=== PATIENT | male | born 1955 | race Caucasian/White ===

== ENCOUNTER 2021-06-12 06:30 | Observation (INO) ==
[~2021-06-12 06:30] MED LIST: Buffered Lidocaine 1% SYRIN 1 ml INTRADERM ONE; Famotidine IV 10 MG/ML 2 ml VIAL (20 mg) IV ONE; Lactated Ringers 1000 ml BAG 1,000 ML IV SCH
[2021-06-12] MEDS ORDERED: Lidocaine 2% PF 5 ML VIAL ONE ×2 (06:55→08:10)
[2021-06-12] MEDS ORDERED: Midazolam 5 mg/5 ml VIAL 1 mg/ml 5 ml VIAL (5 mg) ONE (06:55)
[2021-06-12] MEDS ORDERED: fentaNYL 100 mcg/2 ml 50 MCG/ML VIAL ONE (06:55)
[2021-06-12] MEDS ORDERED: ROPIVACAINE 5 MG/ML 30 ML BTL (0.5%) ONE (06:56)
[2021-06-12] MEDS ORDERED: Famotidine IV 10 MG/ML 2 ml VIAL (20 mg) ONE (06:58)
[2021-06-12] MEDS ORDERED: ceFAZolin 2 GM in NS PREMIX 2 GM/100 ML BAG IVPB ONE (06:58)
[2021-06-12] MEDS ORDERED: Propofol 0 MG/0 ML BTL ONE (08:10)
[2021-06-12] MEDS ORDERED: Ropivacaine 5 MG/ML 20 ML VIAL 0.5% (100 MG) ONE (08:10)
[2021-06-12] MEDS ORDERED: Phenylephrine IV 10 MG/ML 1 ml VIAL ONE (08:11)
[2021-06-12] MEDS ORDERED: Midazolam 2 mg/2 ml VIAL 1 mg/ml 2 ml VIAL (2 mg) ONE (08:16)
[2021-06-12] MEDS ORDERED: Rocuronium 50 mg VIAL 10 mg/ml 5 ml VIAL (50 mg) ONE (08:21)
[2021-06-12] MEDS ORDERED: fentaNYL 250 mcg/5 ml 50 MCG/ML 5 ml VIAL (250 MCG) ONE (08:21)
[2021-06-12] MEDS ORDERED: Propofol 10 MG/ML 20 ML BTL ONE ×2 (08:21→09:27)
[2021-06-12] MEDS ORDERED: HYDROmorphone 0.5 MG/0.5 ML SYRINGE ONE (09:20)
[2021-06-12] MEDS ORDERED: Lactulose 30 ml UDC PO PRN (09:41)
[2021-06-12] MEDS ORDERED: Ondansetron ODT 4 mg TAB 4 MG TAB PO PRN (09:41)
[2021-06-12] MEDS ORDERED: diPHENhydraMINE 25 mg TAB PO PRN (09:41)
[2021-06-12] MEDS ORDERED: Ondansetron 4 mg VIAL 2 MG/ML 2 ml VIAL IV PRN ×2 (09:41→10:25)
[2021-06-12] MEDS ORDERED: Magnesium Hydroxide LIQ 30 ML UDC PO PRN (09:41)
[2021-06-12] MEDS ORDERED: diPHENhydraMINE IV 50 MG/ML 1 ml VIAL (BENADRYL) IV PRN (09:41)
[2021-06-12] MEDS ORDERED: Lactated Ringers 1000 ml BAG 1,000 ML IV SCH (10:00)
[2021-06-12] MEDS ORDERED: fentaNYL 100 mcg/2 ml 50 MCG/ML VIAL IV PRN (10:25)
[2021-06-12] MEDS ORDERED: HYDROmorphone 1 MG/1 ML SYRINGE IV PRN (10:25)
[2021-06-12] MEDS ORDERED: Naloxone 0.4 mg VIAL 0.4 mg/ml 1 ml VIAL IV PRN (10:25)
[2021-06-12] MEDS ORDERED: Ondansetron 4 mg VIAL 2 MG/ML 2 ml VIAL ONE (10:49)
[2021-06-12] MEDS ORDERED: Dexamethasone IV 4 MG/ML VIAL 1 ml VIAL ONE (10:49)
[2021-06-12] MEDS ORDERED: ceFAZolin 1 GM ADVAN 1 GM in NS 0.9% 50 ML 50 ML IVPB SCH (17:00)
[2021-06-12 18:03] VITALS: BP 150/66
[2021-06-12] MEDS ORDERED: Magnesium Hydroxide LIQ 30 ML UDC PO SCH (21:00)
[2021-06-13] MEDS ORDERED: Vitamin THERAPEUTIC TAB PO SCH (09:00)
== END 2021-06-12 18:25 | disposition home or self-care (01) ==
LOC: OR 06:30 → SSU 06:30
PROVIDERS: ADMIT Orthopaedic Surgery Adult Reconstructive Orthopaedic Surgery; ATTEND Orthopaedic Surgery Adult Reconstructive Orthopaedic Surgery

== ENCOUNTER 2021-09-29 06:01 | Observation (INO) ==
[~2021-09-29 06:01] MED LIST changes: -Famotidine IV 10 MG/ML 2 ml VIAL (20 mg) IV ONE
[2021-09-29] MEDS ORDERED: ceFAZolin 2 GM in NS PREMIX 2 GM/100 ML BAG IVPB ONE (06:17)
[2021-09-29] MEDS ORDERED: Ondansetron 4 mg VIAL 2 MG/ML 2 ml VIAL ONE (06:40)
[2021-09-29] MEDS ORDERED: Propofol 10 MG/ML 20 ML BTL ONE (06:40)
[2021-09-29] MEDS ORDERED: Propofol 0 MG/0 ML BTL ONE (06:40)
[2021-09-29] MEDS ORDERED: Lidocaine 2% PF 5 ML VIAL ONE (06:40)
[2021-09-29] MEDS ORDERED: Dexamethasone IV 4 MG/ML VIAL 1 ml VIAL ONE (06:40)
[2021-09-29] MEDS ORDERED: fentaNYL 250 mcg/5 ml 50 MCG/ML 5 ml VIAL (250 MCG) ONE (06:41)
[2021-09-29] MEDS ORDERED: Phenylephrine IV 10 MG/ML 1 ml VIAL ONE (06:41)
[2021-09-29] MEDS ORDERED: Midazolam 2 mg/2 ml VIAL 1 mg/ml 2 ml VIAL (2 mg) ONE (06:41)
[2021-09-29] MEDS ORDERED: Propofol 10 mg/ml 100 ML BTL 0 ML ONE (06:45)
[2021-09-29] MEDS ORDERED: ROPIVACAINE 5 MG/ML 30 ML BTL (0.5%) ONE (07:14)
[2021-09-29] MEDS ORDERED: Naloxone 0.4 mg VIAL 0.4 mg/ml 1 ml VIAL IV PRN (07:30)
[2021-09-29] MEDS ORDERED: Prochlorperazine 5 mg/ml 2 ml VIAL (10 mg) IV PRN (07:30)
[2021-09-29] MEDS ORDERED: Bupivacaine 0.25% SDV 30 ML ONE (07:58)
[2021-09-29] MEDS ORDERED: HYDROmorphone 0.5 MG/0.5 ML SYRINGE ONE ×2 (08:19→08:34)
[2021-09-29] MEDS ORDERED: Magnesium Hydroxide LIQ 30 ML UDC PO PRN (08:42)
[2021-09-29] MEDS ORDERED: Morphine 2 MG/ML SYRINGE IV PRN (08:42)
[2021-09-29] MEDS ORDERED: Ondansetron ODT 4 mg TAB 4 MG TAB PO PRN (08:42)
[2021-09-29] MEDS ORDERED: Ondansetron 4 mg VIAL 2 MG/ML 2 ml VIAL IV PRN (08:42)
[2021-09-29] MEDS ORDERED: Lactulose 30 ml UDC PO PRN (08:42)
[2021-09-29] MEDS ORDERED: Lactated Ringers 1000 ml BAG 1,000 ML IV SCH (09:00)
[2021-09-29] MEDS ORDERED: Magnesium Hydroxide LIQ 30 ML UDC PO SCH (09:00)
[2021-09-29] MEDS ORDERED: Vitamin THERAPEUTIC TAB PO SCH (09:00)
[2021-09-29] MEDS ORDERED: HYDROmorphone 1 MG/1 ML SYRINGE ONE (10:33)
[2021-09-29] MEDS: HYDROmorphone 1 MG/1 ML SYRINGE IV PRN ×5 (10:35→11:14)
[2021-09-29 14:30] VITALS: BP 124/63
[2021-09-29] MEDS ORDERED: ceFAZolin 1 GM ADVAN 1 GM in NS 0.9% 50 ML 50 ML IVPB SCH (16:00)
== END 2021-09-30 00:09 | disposition home or self-care (01) ==
LOC: INTOOBSV 06:01 → AA 06:01 → SSU 08:42
PROVIDERS: ADMIT Orthopaedic Surgery Adult Reconstructive Orthopaedic Surgery; ATTEND Orthopaedic Surgery Adult Reconstructive Orthopaedic Surgery